=== PATIENT | female | born 1945 | race African-American/Black ===

== ENCOUNTER → 2017-07-22 | Outpatient (CLI) | payer OTHER, MEDICARE ==
[~2017-07-22] VITALS: Ht 157.5 cm; Wt 77.1 kg
[~2017-07-22] MED LIST: ASPIRIN EC81 M1 PO; CALTRATE-600 W1 EACH PO; COREG PO; LOSARTAN-HCTZ1 EACH PO; METFORMIN HCL500 MG PO; PROAIR HFA8.5 GM IH; SIMVASTATIN40 MG PO; SYNTHROID75 MCG PO; VITAMIN D1000 UNI1 PO; ZANTAC 150MG T150 M1 PO
--- NOTE | ~2017-07-22 | P ---
[facility] [place] [address] PROCEDURE REPORT Name: SONIA VILLARREAL Room #: REG [facility]#: [id number] Admission: 07/22/17 Attend Phys: Isaias Ugarte MD Discharge: Date of : 41 Report #: [id number] THIS REPORT FOR: //name// CC: Brice Ugarte PREOPERATIVE DIAGNOSIS: Biventricular implantable cardioverter defibrillator elective replacement interval. POSTOPERATIVE DIAGNOSIS: Biventricular implantable cardioverter defibrillator elective replacement interval. HISTORY: The patient is a patient with a history of nonischemic cardiomyopathy, status post Bi-V ICD, whose device is at the elective replacement interval. She is here for generator checks. ANESTHESIA: The patient underwent MAC anesthesia with no anesthesia related complications. DESCRIPTION OF PROCEDURE: The patient underwent informed consent. We discussed the details of the procedure including the risks, which include but not limited to bleeding, infection, need for possible lead revision. She understood these with risks and is willing to proceed. As such, she was brought to the EP laboratory in a fasting and sedated state, prepped and draped in a sterile fashion, received IV antibiotics. I then injected lidocaine at the prior incision site. Incision was made. A pocket was opened and the old device was disconnected. Leads were inspected and found to be in satisfactory condition. The pocket was irrigated with vancomycin. The new device was connected and placed in the pocket and tested and found to be functioning normally. The pocket was closed in 3 layers using 2-0 for the deep layer, 3-0 for the mid layer and 4-0 for the subcuticular layer. Surgical glue was placed at the outer skin layer. There were no intraprocedural complications. The patient awoke neurologically and hemodynamically intact with no complications and no significant bleeding. The explanted generator was a [employer] serial #[id number]. Newly implanted device was a [employer] serial #[id number]. This was an Itrevia. The atrial lead was a [employer] model #4087, serial #[id number] with a P-wave of 3.1 millivolts, pacing impedance of 462 ohms and a pacing threshold 0.9 volts at 0.5 milliseconds. The RV lead was a [employer] model #0158, serial #[id number]. R waves were 13.9. Impedance was 578 and pacing threshold was 0.8 volts at 0.4 milliseconds and the LV lead was a [employer] model #4543, serial #[id number] with a R-wave of 10 millivolts, pacing impedance 650 ohms with a threshold of 3 volts at 0.5 milliseconds. The device is programmed to its original settings DDDR 60-130 with the same VT therapies. CONCLUSIONS: [facility] [address] [place] [address] PROCEDURE REPORT Name: SONIA VILLARREAL Room #: REG [facility] Jean#: [id number] Admission: 07/22/17 Attend Phys: Isaias Ugarte MD Discharge: Date of : 41 Report #: [id number] 1. Successful Bi-V ICD generator change. 2. Satisfactory atrial, right ventricular and left ventricular pacing and sensing thresholds. <ELECTRONICALLY SIGNED> By: Isaias Ugarte MD 08/12/17 1642 1254 1340 Isaias Ugarte MD /nt
[2017-07-22 08:32] VITALS: BP 155/62
[2017-07-22 08:39] LABS: BASOPHILS 0.7 % (0.0-2.0); EOSINOPHILS 1.4 % (0.0-3.0); HEMATOCRIT 38.2 % (37.0-47.0); HEMOGLOBIN 12.8 gm/dL (12.0-15.0); LYMPHOCYTES 20.3 % (24.0-44.0); MCH 29.9 pg (26.0-34.0); MCHC 33.4 g/dL (28.0-37.0); MCV 89.7 fL (80.0-100.0); MONOCYTES 6.9 % (1.0-8.0); PLATELET COUNT 238 thou/uL (150-400); POLYS 70.7 % (36.0-66.0); RBC 4.26 mil/uL (4.20-5.00); RDW 13.7 % (10.5-14.5)
[2017-07-22 08:46] LABS: CALCIUM 9.5 mg/dL (8.5-10.1); CREATININE 0.9 mg/dL (0.6-1.0); POTASSIUM 3.3 mmol/L (3.5-5.1)
[2017-07-22 08:51] LABS: ALBUMIN 3.9 g/dL (3.4-5.0); TOTAL BILIRUBIN 0.7 mg/dL (<0.1-1.0); TOTAL PROTEIN 7.6 g/dL (6.4-8.2)
[2017-07-22 09:18] LABS: APTT 22.8 Seconds (24.5-32.8); PROTIME 10.2 Seconds (9.3-11.4)
== END | disposition home or self-care (01) ==
LOC: CATH 08:10
PROVIDERS: Internal Medicine Cardiovascular Disease
DX: I42.8 Other cardiomyopathies (principal); I11.0 Hypertensive heart disease with heart failure; I50.22 Chronic systolic (congestive) heart failure; E11.9 Type 2 diabetes mellitus without complications; K21.9 Gastro-esophageal reflux disease without esophagitis; E78.5 Hyperlipidemia, unspecified; M19.90 Unspecified osteoarthritis, unspecified site
CPT/HCPCS: 62110; 62900; 70005